=== PATIENT | female | born 2000 | race Caucasian/White ===

== ENCOUNTER 2022-01-31 16:22 | Observation (INO) ==
[2022-01-31] MEDS ORDERED: Lactated Ringers 1000 ml BAG 1,000 ML IV ONE ×3 (17:09→22:03)
[2022-01-31] MEDS ORDERED: cefTRIAXone 1 gm/50 mL D5W 1 GM/50 ML BAG IV ONE (18:23)
[2022-01-31 18:45] LABS: ABS Lymphocytes 1.4 10^3/ul (1.0-4.8); ABS Monocytes 0.9 10^3/ul (0-0.8); ABS Neutrophils 17.2 10^3/ul (1.5-7.7); Hematocrit 35 % (35-47); Hemoglobin 11.7 g/dL (12.0-16.0); Lymphocyte % 7.2 %; Mean Corpuscular HGB Conc 34 g/dL (31-36); Mean Corpuscular Hemoglobin 28 pg (27-31); Mean Corpuscular Volume 82 fL (80-97); Mean Platelet Volume 7.8 fL (7.4-10.4); Platelet Count 404 10^3/uL (150-450); Red Blood Count 4.26 10^6 /uL (3.70-4.87); Red Cell Distribution Width 13 % (10-15); White Blood Count 19.6 10^3/uL (3.5-10.8)
[2022-01-31 19:29] LABS: Anion Gap 15 mmol/L (2-11); Blood Urea Nitrogen 10 mg/dL (6-24); CO2 Carbon Dioxide 21 mmol/L (22-32); Chloride 100 mmol/L (101-111); Glucose 134 mg/dL (70-100); Potassium 3.4 mmol/L (3.5-5.0); Sodium 136 mmol/L (135-145)
[2022-01-31 19:30] LABS: ALT 19 U/L (7-52); AST 18 U/L (13-39); Albumin 3.8 g/dL (3.2-5.2); Albumin/Globulin Ratio 1.1 (1-3); Alkaline Phosphatase 76 U/L (35-149); C Reactive Protein 131.76 mg/L (<8.01); Calcium 9.4 mg/dL (8.6-10.3); Globulin 3.4 g/dL (2-4); Total Protein 7.2 g/dL (6.4-8.9); eGFR CKD-EPI 128.2 (>60)
[2022-01-31 19:34] LABS: HCG Pregnancy < 0.60 mIU/mL
[2022-01-31 19:53] LABS: Urine Appearance Clear; Urine Bilirubin Negative (Negative); Urine Blood Trace (Intact) (Negative); Urine Color Colorless; Urine Glucose Negative (Negative); Urine Ketones Negative (Negative); Urine Nitrite Negative (Negative); Urine Protein Negative (Negative); Urine Urobilinogen 0.2 (Negative) (Negative)
[2022-01-31 20:09] LABS: Urine Bacteria Absent (Absent); Urine Red Blood Cell Trace(0-2/hpf) (Absent); Urine White Blood Cell 2+(11-20/hpf) (Absent)
[2022-01-31] MEDS ORDERED: Ondansetron 4 mg VIAL 2 MG/ML 2 ml VIAL IV ONE (21:18)
[2022-01-31] MEDS ORDERED: Potassium EFFERVES 25 meq TAB PO ONE (21:20)
[2022-01-31] MEDS: Lactated Ringers 1000 ml BAG 1,000 ML IV SCH (23:46)
[2022-02-01 06:35] LABS: ABS Lymphocytes 1.6 10^3/ul (1.0-4.8); ABS Monocytes 1.3 10^3/ul (0-0.8); ABS Neutrophils 11.6 10^3/ul (1.5-7.7); Hematocrit 33 % (35-47); Hemoglobin 10.6 g/dL (12.0-16.0); Lymphocyte % 11.1 %; Mean Corpuscular HGB Conc 33 g/dL (31-36); Mean Corpuscular Hemoglobin 27 pg (27-31); Mean Corpuscular Volume 83 fL (80-97); Mean Platelet Volume 7.8 fL (7.4-10.4); Platelet Count 337 10^3/uL (150-450); Red Blood Count 3.92 10^6 /uL (3.70-4.87); Red Cell Distribution Width 13 % (10-15); White Blood Count 14.5 10^3/uL (3.5-10.8)
[2022-02-01 07:26] LABS: Calcium 8.6 mg/dL (8.6-10.3); Potassium 3.7 mmol/L (3.5-5.0); eGFR CKD-EPI 132.8 (>60)
[2022-02-01] MEDS ORDERED: Potassium Chlor 20 meq TAB.ER PO ONE (08:31)
[2022-02-01] MEDS: Lactated Ringers 1000 ml BAG 1,000 ML IV SCH ×2 (10:05→21:09)
[2022-02-01] MEDS ORDERED: Gentamicin ADULT 360 MG in NS 0.9% 100 ml BAG 100 ML IVPB ONE (18:30)
[2022-02-01] MEDS ORDERED: cefTRIAXone 1 gm/50 mL D5W 1 GM/50 ML BAG IV SCH (18:30)
[2022-02-01] MEDS ORDERED: cefTRIAXone 1 gm/50 mL D5W 1 GM/50 ML BAG IV ONE (19:00)
[2022-02-01 19:32] VITALS: BP 108/58
[2022-02-02] MEDS ORDERED: cefTRIAXone 2 gm/50 mL D5W 2 GM/50 ML BAG IV SCH (18:00)
== END 2022-02-01 22:55 | disposition short-term general hospital (02) ==
LOC: ED 16:22 → EDHOLD 16:22 → MED 02-01 08:15
PROVIDERS: ADMIT Internal Medicine; ATTEND Internal Medicine